=== PATIENT | female | born 1990 | race Hispanic/Latino ===

== ENCOUNTER 2021-10-01 20:29 | Emergency (ER) | payer MEDICAID ==
[~2021-10-01] VITALS: Ht 167.6 cm; Wt 91.2 kg
[2021-10-01 20:44] VITALS: BP 111/74
[2021-10-01 20:57] LABS: APPEARANCE,URINE Cloudy (CLEAR); BILIRUBIN,URINE Negative (NEGATIVE); COLOR,URINE Yellow (YELLOW); GLUCOSE, URINE (UA) Negative (NEGATIVE); KETONES,URINE Negative (NEGATIVE); LEUKOCYTE ESTERASE ,URINE Moderate (NEGATIVE); NITRATE,URINE Negative (NEGATIVE); OCCULT BLOOD,URINE Trace (NEGATIVE); PROTEIN,URINE Negative (NEGATIVE); UROBILINOGEN,URINE 0.2 mg/dL (0.2-1.0)
[2021-10-01 21:00] LABS: HCG,QUAL RESULT NEGATIVE (NEGATIVE)
[2021-10-01] MEDS ORDERED: KETOROLAC 60 MG VIAL (30MG/ML) IM ONE (21:00)
[2021-10-01 21:06] LABS: BASOPHILS % (AUTO) 0.6 % (0.0-5.0); EOSINOPHILS % (AUTO) 2.9 % (0.0-8.0); HEMATOCRIT 46.1 % (36-48); LYMPHOCYTES % (AUTO) 26.6 % (21.0-51.0); MEAN CORPUSCULAR HEMOGLOBIN 28.5 pg (27.0-33.0); MEAN CORPUSCULAR HGB CONC 31.9 g/dL (32.0-36.0); MEAN CORPUSCULAR VOLUME 89.3 fL (79-99); MONOCYTES % (AUTO) 6.6 % (3.0-13.0); NEUTROPHILS % (AUTO) 62.7 % (40.0-77.0); PLATELET COUNT (AUTO) 308 K/uL (130-400); RED BLOOD CELL COUNT(AUTO) 5.16 MIL/uL (4.00-5.50); RED CELL DISTRIBUTION WIDTH 14.6 % (11.0-15.5); WHITE BLOOD COUNT (AUTO) 8.2 K/uL (4.8-10.8)
[2021-10-01 21:09] LABS: BACTERIA,URINE Few /HPF (None Seen); MUCUS,URINE Few LPF (None Seen); SQUAMOUS EPITHELIAL CELL,UR Few /HPF (0-2)
[2021-10-01 21:16] LABS: CARBON DIOXIDE 28 mmol/L (21-32); CHLORIDE 104 mmol/L (101-111); CREATININE 0.6 mg/dL (0.5-1.5); GLOMERULAR FILTR. RATE CALC 125 mL/min (>60); GLUCOSE,RANDOM 97 mg/dL (70-105); POTASSIUM 4.4 mmol/L (3.5-5.1); SODIUM SERUM 137 mmol/L (136-145); UREA NITROGEN, BLOOD 8 mg/dL (7-18)
[2021-10-01 21:20] LABS: ALANINE AMINOTRANSFERASE 24 U/L (12-78); ALBUMIN 3.6 g/dL (3.5-5.0); ASPARTATE AMINOTRANSFERASE 10 U/L (10-37); BILIRUBIN,TOTAL 0.2 mg/dL (0.2-1.0); TOTAL PROTEIN, SERUM 7.6 g/dL (6.0-8.3)
[2021-10-01 21:21] LABS: LIPASE < 50 U/L (114-286)
[2021-10-01] MEDS ORDERED: CEPH500B PO (21:58)
[2021-10-01] MEDS ORDERED: PHEN-847 PO (21:58)
[2021-10-01] MEDS ORDERED: CEFTRIAXONE 1G VIAL IVP ONE (22:00)
[2021-10-01] MEDS ORDERED: PHENAZOPYRIDINE HCL 200 MG TABLET PO ONE (22:00)
[2021-10-01] MEDS ORDERED: LIDOCAINE HCL MPF 1% 5ML VIAL ONE (22:08)
== END 2021-10-01 22:21 | disposition home or self-care (01) ==
LOC: EDH 20:29
DX: N39.0 Urinary tract infection, site not specified (principal); Z79.899 Other long term (current) drug therapy
CPT/HCPCS: 36415; 76856; 80053; 81001; 81025; 83690; 85025; 87077; 87088; 87186; 96372; 96374; 99285; J0696; J1885; J3490

== ENCOUNTER 2022-02-01 00:09 | Emergency (ER) | payer MEDICAID ==
[~2022-02-01] VITALS: Ht 167.6 cm; Wt 108.0 kg
[~2022-02-01 00:09] MED LIST: CEPH500B PO; PHEN-847 PO
[2022-02-01 00:53] LABS: BASOPHILS % (AUTO) 0.3 % (0.0-5.0); EOSINOPHILS % (AUTO) 1.9 % (0.0-8.0); HEMATOCRIT 40.7 % (36-48); LYMPHOCYTES % (AUTO) 21.7 % (21.0-51.0); MEAN CORPUSCULAR HEMOGLOBIN 28.3 pg (27.0-33.0); MEAN CORPUSCULAR HGB CONC 32.7 g/dL (32.0-36.0); MEAN CORPUSCULAR VOLUME 86.6 fL (79-99); MONOCYTES % (AUTO) 6.5 % (3.0-13.0); NEUTROPHILS % (AUTO) 69.2 % (40.0-77.0); PLATELET COUNT (AUTO) 249 K/uL (130-400); RED CELL DISTRIBUTION WIDTH 13.7 % (11.0-15.5); WHITE BLOOD COUNT (AUTO) 10.3 K/uL (4.8-10.8)
[2022-02-01 01:01] LABS: CREATININE 0.7 mg/dL (0.5-1.5); POTASSIUM 3.6 mmol/L (3.5-5.1)
[2022-02-01 01:27] LABS: ALBUMIN 3.2 g/dL (3.5-5.0)
[2022-02-01 02:49] VITALS: BP 112/57
== END 2022-02-01 02:59 | disposition home or self-care (01) ==
LOC: EDH 00:09
DX: O20.0 Threatened abortion (principal); Z3A.01 Less than 8 weeks gestation of pregnancy
CPT/HCPCS: 36415; 76801; 80053; 84702; 85025

== ENCOUNTER 2023-02-06 17:19 | Emergency (ER) | payer MEDICAID ==
[~2023-02-06] VITALS: Ht 167.6 cm; Wt 103.4 kg
[2023-02-06 17:24] VITALS: BP 144/74
[2023-02-06 20:28] LABS: BASOPHILS # (AUTO) 0.03 K/uL (0.00-0.20); BASOPHILS % (AUTO) 0.4 % (0.0-5.0); EOSINOPHILS # (AUTO) 0.24 K/uL (0.00-0.70); EOSINOPHILS % (AUTO) 3.2 % (0.0-8.0); HEMATOCRIT 42.7 % (36-48); IMMATURE GRANULOCYTE ABSOLUTE 0.08 K/uL (0-1); LYMPHOCYTES # (AUTO) 2.3 K/uL (1.0-4.8); LYMPHOCYTES % (AUTO) 30.4 % (21.0-51.0); MEAN CORPUSCULAR HEMOGLOBIN 28.5 pg (27.0-33.0); MEAN CORPUSCULAR HGB CONC 32.1 g/dL (32.0-36.0); MONOCYTES # (AUTO) 0.5 K/uL (0.1-1.0); MONOCYTES % (AUTO) 7.1 % (3.0-13.0); NEUTROPHILS # (AUTO) 4.3 K/uL (1.8-7.7); NEUTROPHILS % (AUTO) 57.8 % (40.0-77.0); PLATELET COUNT (AUTO) 259 K/uL (130-400); RED CELL DISTRIBUTION WIDTH 13.2 % (11.0-15.5); WHITE BLOOD COUNT (AUTO) 7.5 K/uL (4.8-10.8)
[2023-02-06 20:44] LABS: ADD UA MICROSCOPIC YES; APPEARANCE,URINE CLEAR (CLEAR); BILIRUBIN,URINE NEGATIVE (NEGATIVE); COLOR,URINE LIGHT-YELLOW (YELLOW); GLUCOSE, URINE (UA) NEGATIVE (NEGATIVE); KETONES,URINE NEGATIVE (NEGATIVE); LEUKOCYTE ESTERASE ,URINE NEGATIVE Leu/uL (NEGATIVE); NITRATE,URINE NEGATIVE (NEGATIVE); OCCULT BLOOD,URINE NEGATIVE (NEGATIVE); PH,URINE 5.5 (5.0-8.0); PROTEIN,URINE NEGATIVE (NEGATIVE); UROBILINOGEN,URINE 0.2 mg/dL (0.2-1.0)
[2023-02-06 20:48] LABS: MUCUS,URINE RARE LPF (None Seen); SQUAMOUS EPITHELIAL CELL,UR RARE /HPF (0-2)
[2023-02-06 20:57] LABS: ALBUMIN 3.5 g/dL (3.5-5.0); BILIRUBIN,TOTAL 0.2 mg/dL (0.2-1.0); CREATININE 0.7 mg/dL (0.5-1.5); POTASSIUM 3.8 mmol/L (3.5-5.1); TOTAL PROTEIN, SERUM 7.7 g/dL (6.0-8.3)
[2023-02-06] MEDS ORDERED: IOHEXOL-350 75 ML VIAL IV ONE (22:17)
[2023-02-06] MEDS ORDERED: ACETAMINOPHEN 500 MG TABLET PO ONE (22:30)
[2023-02-06 23:54] VITALS: PULSE 78; RESP 18; O2SAT 99
== END 2023-02-06 23:55 | disposition home or self-care (01) ==
LOC: EDH 17:19
DX: H02.402 Unspecified ptosis of left eyelid (principal); E66.9 Obesity, unspecified; Z68.36 Body mass index [BMI] 36.0-36.9, adult
CPT/HCPCS: 99285; 70450; 80053; 84702; 85025; 81001; 36415; 70496; 70498; Q9967